=== PATIENT | male | born 2000 | race Caucasian/White ===

== ENCOUNTER 2024-05-31 14:17 | Emergency (ER) | payer SELFPAY | END 2024-05-31 16:11 | disposition home or self-care (01) | LOC: MW.ED 14:17 | DX: S63.91XA Sprain of unspecified part of right wrist and hand, initial encounter (principal); Z88.0 Allergy status to penicillin; Z75.8 Other problems related to medical facilities and other health care; X50.1XXA Overexertion from prolonged static or awkward postures, initial encounter | CPT/HCPCS: 73130-26-RT; 73130-RT; 99282; 99283 ==